=== PATIENT | female | born 1945 | race Caucasian/White ===

== ENCOUNTER 2017-10-18 02:21 | Outpatient (RCR) | payer MEDICARE, SELFPAY | END 2017-11-04 02:21 | LOC: INF 02:21 | PROVIDERS: Visit Provider Internal Medicine Medical Oncology | DX: R69 Illness, unspecified (principal) ==

== ENCOUNTER 2017-11-15 10:17 | Outpatient (RCR) | payer MEDICARE, MEDICAID, SELFPAY ==
[2017-11-15 10:46] LABS: Abs Immature Grans 0.01 k/cumm (0.0-0.09); Absolute Basophil Count 0.03 k/cumm (0.0-0.2); Absolute Eosinophil Count 0.18 k/cumm (0.0-0.7); Absolute Lymphocyte Count 0.76 k/cumm (1.2-3.4); Absolute Monocyte Count 0.45 k/cumm (0.11-0.7); Absolute Neutrophil Count 3.57 k/cumm (1.2-6.7); Basophils % 0.6; Eosinophils % 3.6; HCT 39.1 % (36.0-46.0); HGB 11.7 g/dL (12.0-15.5); Immature Grans % 0.2; Lymphocytes % 15.2; Mean Corp. HGB Concentration 29.9 g/dL (32.0-36.0); Mean Corpuscular Volume 90.1 fL (80-95); Mean Platelet Volume 8.8 fL (8.0-11.0); Neutrophils % 71.4; Platelet Count 177 x1000/uL (130-400); RBC 4.34 m/cumm (4.00-5.20); RBC Distribution Width 16.3 % (11.7-14.6)
[2017-11-15 11:11] LABS: ALT 18 U/L (12-78); AST 20 U/L (15-37); Albumin 2.7 g/dL (3.4-5.0); Alkaline Phosphatase 75 U/L (46-116); Anion Gap 6.3 mmol/L (3-11); BUN 31 mg/dL (7-18); Bilirubin, Total 0.4 mg/dL (0.2-1.0); CO2 33.7 mmol/L (21.0-32.0); CREATININE 1.45 mg/dL (0.55-1.02); Calcium 8.7 mg/dL (8.5-10.1); Chloride 98 mmol/L (98-107); Glucose 138 mg/dL (70-100); Potassium 3.3 mmol/L (3.5-5.1); Sodium 138 mmol/L (136-145)
== END 2017-12-04 23:59 | disposition home or self-care (01) ==
LOC: INF 10:17
PROVIDERS: Visit Provider Internal Medicine Medical Oncology
DX: C50.211 Malignant neoplasm of upper-inner quadrant of right female breast (principal); Z17.0 Estrogen receptor positive status [ER+]; Z45.2 Encounter for adjustment and management of vascular access device
CPT/HCPCS: 36591; 80053; 85025

== ENCOUNTER 2017-12-29 00:57 | Outpatient (RCR) | payer MEDICARE, MEDICAID, SELFPAY ==
[2017-12-29] MEDS: Normal Saline Flush 10 ML SYR IVP (14:55)
[2017-12-29] MEDS: Heparin 500 UNITS/5 ML SYRINGE IV (14:55)
[2017-12-29 15:15] LABS: Abs Immature Grans 0.01 k/cumm (0.0-0.09); Absolute Basophil Count 0.03 k/cumm (0.0-0.2); Absolute Eosinophil Count 0.29 k/cumm (0.0-0.7); Absolute Lymphocyte Count 1.02 k/cumm (1.2-3.4); Absolute Monocyte Count 0.59 k/cumm (0.11-0.7); Absolute Neutrophil Count 3.82 k/cumm (1.2-6.7); Basophils % 0.5; HCT 34.8 % (36.0-46.0); HGB 11.1 g/dL (12.0-15.5); Immature Grans % 0.2; Lymphocytes % 17.7; Mean Corp. HGB Concentration 31.9 g/dL (32.0-36.0); Mean Corpuscular Hemoglobin 28.9 pg (27.0-33.0); Mean Corpuscular Volume 90.6 fL (80-95); Mean Platelet Volume 8.8 fL (8.0-11.0); Monocytes % 10.2; Neutrophils % 66.4; Platelet Count 237 x1000/uL (130-400); RBC 3.84 m/cumm (4.00-5.20); RBC Distribution Width 16.5 % (11.7-14.6); White Blood Cell Count 5.76 k/cumm (4.4-10.8)
[2017-12-29 15:28] LABS: ALT 21 U/L (12-78); AST 20 U/L (15-37); Albumin 3.3 g/dL (3.4-5.0); Alkaline Phosphatase 68 U/L (46-116); Anion Gap 7.1 mmol/L (3-11); BUN 31 mg/dL (7-18); Bilirubin, Total 0.3 mg/dL (0.2-1.0); CO2 28.9 mmol/L (21.0-32.0); CREATININE 1.16 mg/dL (0.55-1.02); Chloride 100 mmol/L (98-107); Estimated GFR 46.05 (mL/min/1.73m2); Glucose 85 mg/dL (70-100); Potassium 4.5 mmol/L (3.5-5.1); Sodium 136 mmol/L (136-145); Total Protein 6.5 g/dL (6.4-8.2)
== END 2018-01-04 23:59 | disposition home or self-care (01) ==
LOC: INF 00:57
PROVIDERS: Visit Provider Internal Medicine Medical Oncology
DX: C50.211 Malignant neoplasm of upper-inner quadrant of right female breast (principal); Z17.0 Estrogen receptor positive status [ER+]; Z45.2 Encounter for adjustment and management of vascular access device
CPT/HCPCS: 36591; 80053; 85025

== ENCOUNTER 2018-03-30 13:45 | Outpatient (RCR) | payer MEDICARE, MEDICAID, SELFPAY | END 2018-04-06 23:59 | disposition home or self-care (01) | LOC: INF 13:45 | PROVIDERS: Visit Provider Internal Medicine Hematology & Oncology | DX: R69 Illness, unspecified (principal) ==

== ENCOUNTER 2019-01-03 10:56 | Outpatient (RCR) | payer MEDICARE, MEDICAID, SELFPAY ==
[2019-01-03 11:20] LABS: Absolute Basophil Count 0.04 k/cumm (0.0-0.2); Absolute Eosinophil Count 0.25 k/cumm (0.0-0.7); Absolute Lymphocyte Count 0.95 k/cumm (1.2-3.4); Absolute Monocyte Count 0.47 k/cumm (0.11-0.7); Absolute Neutrophil Count 3.47 k/cumm (1.2-6.7); Basophils % 0.8; Eosinophils % 4.8; HCT 36.3 % (36.0-46.0); HGB 11.2 g/dL (12.0-15.5); Lymphocytes % 18.3; Mean Corp. HGB Concentration 30.9 g/dL (32.0-36.0); Mean Corpuscular Volume 97.3 fL (80-95); Mean Platelet Volume 9.3 fL (8.0-11.0); Monocytes % 9.1; Platelet Count 219 x1000/uL (130-400); RBC 3.73 m/cumm (4.00-5.20); White Blood Cell Count 5.18 k/cumm (4.4-10.8)
[2019-01-03 11:47] LABS: ALT 20 U/L (14-59); AST 16 U/L (15-37); Albumin 3.3 g/dL (3.4-5.0); Alkaline Phosphatase 69 U/L (46-116); BUN 22 mg/dL (7-18); Bilirubin, Total 0.3 mg/dL (0.2-1.0); CREATININE 1.59 mg/dL (0.55-1.02); Chloride 106 mmol/L (98-107); Estimated GFR 31.91 (mL/min/1.73m2); Glucose 85 mg/dL (70-100); Sodium 141 mmol/L (136-145); Total Protein 6.9 g/dL (6.4-8.2)
== END 2019-01-04 23:59 | disposition home or self-care (01) ==
LOC: INF 10:56
PROVIDERS: Visit Provider Internal Medicine Hematology & Oncology
DX: C50.211 Malignant neoplasm of upper-inner quadrant of right female breast (principal); Z17.0 Estrogen receptor positive status [ER+]
CPT/HCPCS: 36415; 80053; 85025

== ENCOUNTER 2019-04-05 13:40 | Outpatient (RCR) | payer MEDICARE, MEDICAID, SELFPAY ==
[2019-04-05 13:59] LABS: Abs Immature Grans 0.02 k/cumm (0.0-0.09); Absolute Basophil Count 0.04 k/cumm (0.0-0.2); Absolute Eosinophil Count 0.23 k/cumm (0.0-0.7); Absolute Monocyte Count 0.58 k/cumm (0.11-0.7); Absolute Neutrophil Count 4.64 k/cumm (1.2-6.7); Basophils % 0.6; Eosinophils % 3.5; HCT 36.9 % (36.0-46.0); HGB 11.7 g/dL (12.0-15.5); Immature Grans % 0.3 %; Lymphocytes % 16.6; Mean Corp. HGB Concentration 31.7 g/dL (32.0-36.0); Mean Corpuscular Hemoglobin 29.8 pg (27.0-33.0); Mean Corpuscular Volume 94.1 fL (80-95); Monocytes % 8.8; Neutrophils % 70.2; Platelet Count 259 x1000/uL (130-400); RBC 3.92 m/cumm (4.00-5.20); RBC Distribution Width 12.9 % (11.7-14.6); White Blood Cell Count 6.61 k/cumm (4.4-10.8)
[2019-04-05 14:12] LABS: ALT 24 U/L (14-59); AST 24 U/L (15-37); Albumin 3.6 g/dL (3.4-5.0); Alkaline Phosphatase 76 U/L (46-116); BUN 29 mg/dL (7-18); Bilirubin, Total 0.4 mg/dL (0.2-1.0); CREATININE 1.54 mg/dL (0.55-1.02); Chloride 102 mmol/L (98-107); Estimated GFR 33.11 (mL/min/1.73m2); Glucose 71 mg/dL (74-106); Potassium 5.1 mmol/L (3.5-5.1); Sodium 139 mmol/L (136-145); Total Protein 7.4 g/dL (6.4-8.2)
== END 2019-04-06 23:59 | disposition home or self-care (01) ==
LOC: INF 13:40
PROVIDERS: Visit Provider Registered Nurse Oncology
DX: C50.911 Malignant neoplasm of unspecified site of right female breast (principal)
CPT/HCPCS: 36415; 80053; 85025

== ENCOUNTER → 2019-05-02 10:49 | Outpatient (BNVA) | payer MEDICARE, MEDICAID, SELFPAY | PROVIDERS: Referring Provider Neuromusculoskeletal Medicine & OMM; Visit Provider Internal Medicine Cardiovascular Disease | DX: I42.8 Other cardiomyopathies (principal); I50.9 Heart failure, unspecified; Z85.3 Personal history of malignant neoplasm of breast | CPT/HCPCS: 99202 ==

== ENCOUNTER 2019-05-02 11:07 | Outpatient (CLI) | payer MEDICARE, SELFPAY | END 2019-05-02 11:27 | PROVIDERS: Visit Provider Internal Medicine Cardiovascular Disease | DX: I42.9 Cardiomyopathy, unspecified (principal); Z92.21 Personal history of antineoplastic chemotherapy; I42.8 Other cardiomyopathies; I50.9 Heart failure, unspecified; Z85.3 Personal history of malignant neoplasm of breast | CPT/HCPCS: 99202; 93005; 93010 ==

== ENCOUNTER 2019-05-16 07:28 | Outpatient (CLI) | payer MEDICARE, MEDICAID, SELFPAY ==
--- NOTE | 2019-05-16 15:00 | DI.US_ITS ---
APPROVED REPORT EXAM: Comprehensive 2D, Doppler, and color-flow Echocardiogram Patient Location: Out-Patient Mechanical Design Engineer Products: Ghazala Saha RDCS (AE) Indications: Congestive Heart Failure Conclusion Left Ventricle : The left ventricle is normal size. Left ventricular systolic function is mildly decr eased. There is normal left ventricular wall thickness. There is normal LV segmental wall motion. The re is evidence of impaired LV relaxation. LVEF is 45-49%. Right Ventricle : Right ventricle is not well visualized. Atria : The left atrium size is normal. The right atrium size is normal. Aortic Valve : Aortic valve is trileaflet. No aortic regurgitation is present. There is no aortic kellie vular stenosis. Mitral Valve : There is mitral annular calcification. Mild mitral regurgitation. No evidence of ruddy l valve stenosis. Tricuspid Valve : The tricuspid valve is normal in structure. Trace tricuspid regurgitation. There is no tricuspid valve stenosis. Great Vessels : The aortic root is normal in size. The ascending aorta size is mildly dilated. IVC i s normal in size and collapses >50% with inspiration. Estimated RVSP is 19-22 mmHg. There is no prior echocardiogram available for comparison. Wall motion Left Ventricle The left ventricle is normal size. Left ventricular systolic function is mildly decreased. There is n ormal left ventricular wall thickness. There are no regional wall motion abnormalities. There is evid ence of impaired LV relaxation. LVEF is 45-49%. Right Ventricle Right ventricle is not well visualized. Atria The left atrium size is normal. The right atrium size is normal. Aortic Valve Aortic valve is trileaflet. There is no aortic valvular stenosis. No aortic regurgitation is present. Mitral Valve There is mitral annular calcification. No evidence of mitral valve stenosis. Mild mitral regurgitatio n. Tricuspid Valve The tricuspid valve is normal in structure. There is no tricuspid valve stenosis. Trace tricuspid reg urgitation. Pulmonic Valve The pulmonary valve is normal in structure. There is no pulmonic valvular stenosis. Trace pulmonic re gurgitation. Great Vessels The aortic root is normal in size. The ascending aorta size is mildly dilated. IVC is normal in size and collapses >50% with inspiration. Estimated RVSP is 19-22 mmHg. Pericardium There is no pericardial effusion. 2D Dimensions Ao Root d 3.19 cm F: 2.7 - 3.3 LV Vol A2C d MOD 101.9 mL RA Area A4C 11.18 cm2 LV Vol A4C d MOD 104.4 mL RA Vol/ BSA A4C s A-L 14.5 mL/m2 LA vol/ BSA A2C s A-L 29.8 mL/m2 Ao Asc Diam d 3.20 cm F: 2.3 - 3.1 LA vol/ BSA A4C s A-L 24.1 mL/m2 LVEF (Silva's) 47.21 % F: 54 - 74 LA Vol/ BSA Biplane s A-L 28.7 mL/m2 LV Volume 79.82 mL F: 46 - 106 LA Area A4C s MOD 15.52 cm2 LV Volume Index 41.79 mL/m2 F: 29 - 61 LA Area A2C s MOD 18.47 cm2 LV Vol Biplane MOD 104.9 mL LV EF A4C MOD 45.6 % LV EF A2C MOD 48.0 % LV EF Biplane MOD 47.2 % LV Diastology MV E' medial 0.062 (>0.07 m/s) E/A Ratio 0.8 LV E/e MED 9.05 (<14) MV E Vmax 0.56 (0.4-1.3 m/s) MV E' lateral 0.065 (>0.1 m/s) MV A Vmax 0.70 (0.4-1.3 m/s) LV E/e LAT 8.60 (<14) MV E/A Ratio 0.77 MV E/E' medial 9.08 MV E/E' lateral 8.63 Aortic Valve LVOT Area 4.21 cm2 AoV Area Vmax 3.52 cm2 LVOT Vmax 0.96 m/s AoV Area/ BSA (Vmax) 1.84 cm2/m2 LVOT Mean Tomás. 0.59 m/s VALERY Mean Tomás. 3.10 cm2 LVOT Peak Grad 3.7 mmHg VALERY Mean Tomás. Index 1.62 cm2/m2 LVOT Mean Grad 1.7 mmHg LVOT VTI 0.193 m LVOT Diam s 2.30 cm (M/F) 1.5-2.5 AoV Vmax 1.15 (0.5-1.3 m/s) Velocity Ratio 0.83 AoV Mean Tomás. 0.81 m/s AoV Peak Grad 5.3 mmHg LVOT SV 81.34 mL AoV Mean Grad 2.9 (<5 mmHg) AoV VTI 0.225 (0.18-0.25 m) AoV Area VTI 3.62 (2.5-4.5 cm2) AoV Area/ BSA (VTI) 1.89 cm/m2 Mitral Valve MV DT 238 (160-240 msec) MV PHT 69 msec MV Area PHT 3.18 cm2 Pulmonary Valve PV Vmax 0.85 (0.5-1.5 m/s) PV Peak Grad 2.9 mmHg PV Mean Grad 1.4 mmHg PV VTI 0.154 m Tricuspid Valve TR Peak Grad 19.3 mmHg TR Vmax 2.20 m/s RA Pressure 3.00 mmHg RVSP (TR) 22.4 mmHg
== END 2019-05-16 07:48 ==
PROVIDERS: PCP Internal Medicine Cardiovascular Disease; Visit Provider Internal Medicine Cardiovascular Disease
DX: I50.9 Heart failure, unspecified (principal); I42.9 Cardiomyopathy, unspecified; I34.0 Nonrheumatic mitral (valve) insufficiency
CPT/HCPCS: 93306

== ENCOUNTER 2019-08-09 10:32 | Outpatient (CLI) | payer MEDICARE, MEDICAID, SELFPAY ==
[2019-08-09 11:09] LABS: Abs Immature Grans 0.03 k/cumm (0.0-0.09); Absolute Eosinophil Count 0.05 k/cumm (0.0-0.7); Absolute Lymphocyte Count 0.54 k/cumm (1.2-3.4); Absolute Monocyte Count 0.37 k/cumm (0.11-0.7); Absolute Neutrophil Count 5.74 k/cumm (1.2-6.7); Eosinophils % 0.7; HCT 34.1 % (36.0-46.0); HGB 10.4 g/dL (12.0-15.5); Immature Grans % 0.4 %; Mean Corp. HGB Concentration 30.5 g/dL (32.0-36.0); Mean Corpuscular Hemoglobin 30.6 pg (27.0-33.0); Mean Corpuscular Volume 100.3 fL (80-95); Mean Platelet Volume 8.4 fL (8.0-11.0); Monocytes % 5.5; Neutrophils % 85.4; Platelet Count 231 x1000/uL (130-400); RBC Distribution Width 14.7 % (11.7-14.6); White Blood Cell Count 6.73 k/cumm (4.4-10.8)
[2019-08-09 11:22] LABS: ALT 36 U/L (14-59); AST 17 U/L (15-37); Albumin 3.3 g/dL (3.4-5.0); Alkaline Phosphatase 67 U/L (46-116); BUN 22 mg/dL (7-18); Bilirubin, Total 0.4 mg/dL (0.2-1.0); CREATININE 1.06 mg/dL (0.55-1.02); Calcium 9.2 mg/dL (8.5-10.1); Chloride 104 mmol/L (98-107); Estimated GFR 50.81 (mL/min/1.73m2); Glucose 106 mg/dL (74-106); Potassium 3.7 mmol/L (3.5-5.1); Sodium 139 mmol/L (136-145); Total Protein 6.6 g/dL (6.4-8.2)
== END 2019-08-09 10:52 ==
PROVIDERS: PCP Internal Medicine Cardiovascular Disease; Visit Provider Internal Medicine Hematology & Oncology
DX: C50.211 Malignant neoplasm of upper-inner quadrant of right female breast (principal); Z17.0 Estrogen receptor positive status [ER+]
CPT/HCPCS: 36415; 80053; 85025

== ENCOUNTER → 2020-05-12 10:43 | Outpatient (BNVA) | payer MEDICARE, MEDICAID, SELFPAY | PROVIDERS: PCP Neuromusculoskeletal Medicine & OMM; Referring Provider Internal Medicine Cardiovascular Disease; Visit Provider Internal Medicine Cardiovascular Disease | DX: I42.9 Cardiomyopathy, unspecified (principal); J44.9 Chronic obstructive pulmonary disease, unspecified; Z87.891 Personal history of nicotine dependence | CPT/HCPCS: 99214; 99213 ==

== ENCOUNTER → 2020-12-01 12:43 | Outpatient (BNVA) | payer MEDICARE, MEDICAID, SELFPAY | PROVIDERS: PCP Neuromusculoskeletal Medicine & OMM; Referring Provider Neuromusculoskeletal Medicine & OMM; Visit Provider Internal Medicine Cardiovascular Disease | DX: I42.9 Cardiomyopathy, unspecified (principal); J44.9 Chronic obstructive pulmonary disease, unspecified; C50.919 Malignant neoplasm of unspecified site of unspecified female breast | CPT/HCPCS: 99214; 99213 ==

== ENCOUNTER 2020-12-17 03:16 | Outpatient (CLI) | payer MEDICARE, MEDICAID, SELFPAY ==
--- NOTE | 2020-12-17 13:10 | DI.US_ITS ---
APPROVED REPORT EXAM: Comprehensive 2D, Doppler, and color-flow Echocardiogram Patient Location: Out-Patient Portfolio Consultant: Ghazala Saha RDCS (AE) Indications: Cardiomyopathy Other Information Study Quality: Adequate Conclusion Normal left ventricular wall thickness and chamber size. Estimated ejection fraction is 50 to 55%. Th ere is very mild global hypokinesis without segmental wall motion abnormalities Normal right ventricular size and systolic function Both atria are normal in size The aortic valve is trileaflet with trace regurgitation Mildly thickened mitral leaflets, mild mitral regurgitation Normal tricuspid valve with trace regurgitation. Estimated right ventricular systolic pressure is 33 mmHg Mildly dilated ascending aorta measuring 3.49 cm Wall motion Left Ventricle The left ventricle is normal size. Left ventricular systolic function is mildly decreased. There is n ormal left ventricular wall thickness. There is very mild global hypokinesis of the left ventricle. T here is no ventricular septal defect visualized. LVEF is 50-55%. Right Ventricle The right ventricle is normal size. The right ventricular systolic function is normal. The RVSP is 33 .2mmHg. Atria The left atrium size is normal. The right atrium size is normal. The interatrial septum is intact wit h no evidence for an atrial septal defect. Aortic Valve The aortic valve is normal in structure. Aortic valve is trileaflet. There is no aortic valvular sten osis. Trace aortic regurgitation. Mitral Valve Mitral valve leaflets are mildly thickened. No evidence of mitral valve stenosis. Mild mitral regurgi tation. Tricuspid Valve The tricuspid valve is normal in structure. There is no tricuspid valve stenosis. Trace to mild tricu spid regurgitation. Pulmonic Valve The pulmonary valve is normal in structure. There is no pulmonic valvular stenosis. Trace pulmonic re gurgitation. Great Vessels The aortic root is normal in size. The ascending aorta is mildly dilated.3.49 cm Aortic arch is suyapa l in caliber. IVC is normal in size and collapses >50% with inspiration. Pericardium There is no pericardial effusion. 2D Dimensions IVSD d PLAX 1.04 cm F: 0.6-1.0 LV Vol A2C d MOD 99.6 mL LVPW d PLAX 1.06 cm F: 0.6 - 1.0 LV Vol A4C d MOD 123.9 mL LVID d PLAX 5.60 cm F: 3.8 - 5.2 LA vol/ BSA A2C s A-L 22.5 mL/m2 LVDs 4.10 cm F: 2.2 - 3.5 LA vol/ BSA A4C s A-L 24.9 mL/m2 Ao Root d 3.19 cm F: 2.7 - 3.3 LA Vol/ BSA Biplane s A-L 24.5 mL/m2 RA Area A4C 13.27 cm2 LA Area A4C s MOD 17.19 cm2 RA Vol/ BSA A4C s A-L 15.6 mL/m2 LA Area A2C s MOD 15.79 cm2 Ao Asc Diam d 3.49 cm F: 2.3 - 3.1 LV EF A4C MOD 50.0 % LV EF Teichholz 50.2 % LV EF A2C MOD 50.1 % LVEF (Silva's) 49.01 % F: 54 - 74 LV EF Biplane MOD 49.0 % LV Volume 85.36 mL F: 46 - 106 SV 54.73 mL LV Volume Index 45.16 mL/m2 F: 29 - 61 SV Index 28.93 mL/m2 LV Vol Biplane MOD 111.7 mL FS 25.85 % M-Mode TAPSE 2.76 cm (M/F) >1.7 LV Diastology MV E' medial 0.083 (>0.07 m/s) E/A Ratio 0.8 LV E/e MED 7.45 (<14) MV E Vmax 0.62 (0.4-1.3 m/s) MV E' lateral 0.092 (>0.1 m/s) MV A Vmax 0.75 (0.4-1.3 m/s) LV E/e LAT 6.75 (<14) MV E/A Ratio 0.81 MV E/E' medial 7.47 MV E/E' lateral 6.77 Aortic Valve LVOT Area 3.69 cm2 AoV Area Vmax 2.91 cm2 LVOT Vmax 1.00 m/s AoV Area/ BSA (Vmax) 1.54 cm2/m2 LVOT Mean Tomás. 0.64 m/s VALERY Mean Tomás. 2.86 cm2 LVOT Peak Grad 4.0 mmHg VALERY Mean Tomás. Index 1.51 cm2/m2 LVOT Mean Grad 1.9 mmHg LVOT VTI 0.233 m LVOT Diam s 2.15 cm AoV Vmax 1.27 m/s Velocity Ratio 0.78 AoV Mean Tomás. 0.82 m/s AoV Peak Grad 6.4 mmHg LVOT SV 85.92 mL AoV Mean Grad 3.1 mmHg AoV VTI 0.285 m AoV Area VTI 3.02 cm2 AoV Area/ BSA (VTI) 1.59 cm/m2 Mitral Valve MV DT 332 (160-240 msec) MR Vmax 4.47 m/s MV PHT 96 msec MR VTI 1.843 m MV Area PHT 2.28 cm2 MR Peak Grad 80.0 mmHg MV VTI 0.348 m MR Mean Grad 52.7 mmHg MV VTI Annulus 0.370 m MR PISA Radius 0.57 cm MV Area VTI 2.63 (4.0-6.0 cm2) MR EROA 0.16 cm2 MR Aliasing Velocity 0.35 m/s MR PISA 2.06 cm2 Pulmonary Valve PV Vmax 0.97 (0.5-1.5 m/s) RVOT Peak Gr. 2.22 mmHg PV Peak Grad 3.8 mmHg RVOT Mean Gr. 1.10 mmHg PV Mean Grad 2.1 mmHg RVOT VTI 0.169 m PV VTI 0.226 m RVOT Vmax 0.75 m/s Tricuspid Valve TR Peak Grad 30.2 mmHg TR Vmax 2.75 m/s RA Pressure 3.00 mmHg RVSP (TR) 33.2 mmHg
== END 2020-12-17 03:36 ==
PROVIDERS: PCP Neuromusculoskeletal Medicine & OMM; Visit Provider Internal Medicine Cardiovascular Disease
DX: I42.9 Cardiomyopathy, unspecified (principal); I34.0 Nonrheumatic mitral (valve) insufficiency; I77.810 Thoracic aortic ectasia
CPT/HCPCS: 93306

== ENCOUNTER → 2021-06-01 12:51 | Outpatient (BNVA) | payer OTHER, MEDICAID, SELFPAY | PROVIDERS: PCP Neuromusculoskeletal Medicine & OMM; Visit Provider Internal Medicine Cardiovascular Disease | DX: J44.9 Chronic obstructive pulmonary disease, unspecified (principal); I10 Essential (primary) hypertension | CPT/HCPCS: 99213 ==

== ENCOUNTER 2021-10-01 02:48 | Outpatient (RCR) | payer OTHER, MEDICAID, SELFPAY ==
[2021-10-01] MEDS: Normal Saline Flush 10 ML SYR IVP (13:09)
[2021-10-01] MEDS: IRON SUCROSE COMPLEX 300 MG in Normal Saline 250 ML 176.667 MG IVPB (13:10)
== END 2021-10-04 23:59 | disposition home or self-care (01) ==
LOC: INF 02:48
PROVIDERS: PCP Neuromusculoskeletal Medicine & OMM; Visit Provider Family Medicine
DX: N18.32 Chronic kidney disease, stage 3b (principal); D63.1 Anemia in chronic kidney disease; D50.9 Iron deficiency anemia, unspecified
CPT/HCPCS: 96365; J1756

== ENCOUNTER 2021-10-15 01:17 | Outpatient (RCR) | payer OTHER, MEDICAID, SELFPAY ==
[2021-10-08] MEDS: IRON SUCROSE COMPLEX 300 MG in Normal Saline 250 ML 176.667 MG IVPB (13:30)
[2021-10-08] MEDS: Normal Saline Flush 10 ML SYR IVP (13:30)
[2021-10-15] MEDS: Normal Saline Flush 10 ML SYR IVP (13:11)
[2021-10-15] MEDS: IRON SUCROSE COMPLEX 300 MG in Normal Saline 250 ML 176.667 MG IVPB (13:57)
== END 2021-11-04 23:59 | disposition home or self-care (01) ==
LOC: INF 01:17
PROVIDERS: PCP Neuromusculoskeletal Medicine & OMM; Visit Provider Family Medicine
DX: D63.1 Anemia in chronic kidney disease (principal); D50.9 Iron deficiency anemia, unspecified; N18.32 Chronic kidney disease, stage 3b
CPT/HCPCS: 96365; 96366; J1756

== ENCOUNTER 2022-06-01 07:51 | Outpatient (CLI) | payer OTHER, MEDICAID, SELFPAY ==
--- NOTE | 2022-06-01 07:45 | RT.EKG_ITS ---
APPROVED REPORT Exam: Resting ECG Reason for Exam: cmp Patient Location: O HR:74 bpm ECG Measurements Heart Rate 74 AXIS AK 215 P 0 QRSd 107 QRS 9 QT 329 T 157 QTc 365 Conclusion Sinus rhythm...normal P axis, V-rate 50- 99 Borderline prolonged AK interval...AK >212, V-rate 50- [address]-T abnormalities
== END 2022-06-01 07:52 | disposition home or self-care (01) ==
LOC: DI.CARD 07:52
PROVIDERS: PCP Neuromusculoskeletal Medicine & OMM; Visit Provider Internal Medicine Cardiovascular Disease
DX: I42.9 Cardiomyopathy, unspecified (principal); R94.31 Abnormal electrocardiogram [ECG] [EKG]
CPT/HCPCS: 93010

== ENCOUNTER → 2022-06-01 13:32 | Outpatient (BNVA) | payer OTHER, MEDICAID, SELFPAY | PROVIDERS: PCP Neuromusculoskeletal Medicine & OMM; Visit Provider Internal Medicine Cardiovascular Disease | DX: I42.9 Cardiomyopathy, unspecified (principal); J44.9 Chronic obstructive pulmonary disease, unspecified; I10 Essential (primary) hypertension | CPT/HCPCS: 93005; 99213 ==

== ENCOUNTER 2023-01-03 02:58 | Outpatient (RCR) | payer OTHER, SELFPAY ==
[2022-12-27] MEDS: Normal Saline Flush 10 ML SYR IVP (13:04)
[2022-12-27] MEDS: IRON SUCROSE COMPLEX 300 MG in Normal Saline 250 ML 176.667 MG IVPB (13:14)
[2023-01-03] MEDS: Normal Saline Flush 10 ML SYR IVP (13:13)
[2023-01-03] MEDS: IRON SUCROSE COMPLEX 300 MG in Normal Saline 250 ML 176.667 MG IVPB (13:13)
== END 2023-01-04 23:59 | disposition home or self-care (01) ==
LOC: INF 02:58
PROVIDERS: PCP Neuromusculoskeletal Medicine & OMM; Visit Provider Internal Medicine
DX: C50.919 Malignant neoplasm of unspecified site of unspecified female breast (principal)
CPT/HCPCS: 96365; 96366; J1756

== ENCOUNTER 2023-01-10 00:56 | Outpatient (RCR) | payer OTHER, SELFPAY ==
[2023-01-10] MEDS: IRON SUCROSE COMPLEX 300 MG in Normal Saline 250 ML 176.667 MG IVPB (13:13)
[2023-01-10] MEDS: Normal Saline Flush 10 ML SYR IVP (13:27)
== END 2023-02-03 23:59 | disposition home or self-care (01) ==
LOC: INF 00:56
PROVIDERS: PCP Neuromusculoskeletal Medicine & OMM; Visit Provider Internal Medicine
DX: N18.4 Chronic kidney disease, stage 4 (severe) (principal); D63.1 Anemia in chronic kidney disease; D50.9 Iron deficiency anemia, unspecified
CPT/HCPCS: 96365; 96366; J1756

== ENCOUNTER 2023-03-03 08:36 | Outpatient (RCR) | payer OTHER, SELFPAY ==
[2023-03-03 09:37] LABS: Abs Immature Grans 0.07 10^3/uL (0.0-0.06); Absolute Basophil Count 0.02 10^3/uL (0.0-0.2); Absolute Lymphocyte Count 0.65 10^3/uL (1.2-3.4); Absolute Neutrophil Count 11.43 10^3/uL (1.2-6.7); Basophils % 0.2; HCT 34.3 % (36.0-46.0); HGB 10.7 g/dL (11.2-15.7); Immature Grans % 0.6; Lymphocytes % 5.2; MCH 29.9 pg (27.0-33.0); MCHC 31.2 % (32.0-36.0); MCV 96 fL (80-95); Monocytes % 2.2; Neutrophils % 91.8; Platelet Count 250 10^3/uL (130-400); RBC 3.58 10^6/uL (3.93-5.22); RDW 13.8 % (11.7-14.6); RDW-SD 49.1 fL; WBC 12.45 10^3/uL (4.4-10.8)
[2023-03-03 09:38] LABS: Absolute Monocyte Count 0.27 10^3/uL (0.1-0.8)
[2023-03-03 09:53] LABS: ALT 15 U/L (14-59); AST 10 U/L (15-37); Albumin 3.5 g/dL (3.4-5.0); Alkaline Phosphatase 51 U/L (46-116); Anion Gap 11.6 mmol/L (3-11); CO2 23.4 mmol/L (21.0-32.0); CREATININE 3.3 mg/dL (0.55-1.02); Calcium 9.6 mg/dL (8.5-10.1); Chloride 104 mmol/L (98-107); Estimated GFR 13.93 (mL/min/1.73m2); Glucose 126 mg/dL (74-106); Potassium 4.3 mmol/L (3.5-5.1); Sodium 139 mmol/L (136-145); Total Protein 7.4 g/dL (6.4-8.2)
[2023-03-03 10:01] LABS: BUN 90 mg/dL (7-18)
== END 2023-03-06 23:59 | disposition home or self-care (01) ==
LOC: INF 08:36
PROVIDERS: PCP Neuromusculoskeletal Medicine & OMM; Visit Provider Internal Medicine Hematology & Oncology
DX: C50.211 Malignant neoplasm of upper-inner quadrant of right female breast (principal)
CPT/HCPCS: 36415; 80053; 85025

== ENCOUNTER → 2023-05-23 04:45 | Outpatient (CLI) | payer OTHER, SELFPAY ==
--- NOTE | 2023-05-23 13:30 | DI.US_ITS ---
APPROVED REPORT EXAM: Comprehensive 2D, Doppler, and color-flow Echocardiogram Patient Location: Out-Patient Warp Splitter: Ghazala Saha RDCS (AE) Indications: LV function, cardiomyopathy Other Information Study Quality: Adequate Conclusion Normal left ventricular wall thickness and chamber size. EF biplane is 40%. Visually appears 45 to 50% with global hypokinesis Normal right ventricular size and function Both atria are normal in size Trileaflet aortic valve with trace regurgitation Normal mitral valve with mild regurgitation Normal tricuspid valve, trace to mild regurgitation. Estimated right ventricular systolic pressure i s 33 mmHg Wall motion Left Ventricle Left ventricle is mildly dilated. Left ventricular systolic function is mild to moderately decreased . There is normal left ventricular wall thickness. There is global hypokinesis of the left ventricle. There is no ventricular septal defect visualized. LVEF is 40%. Right Ventricle The right ventricle is normal size. Right ventricular systolic function is grossly normal. Atria The left atrium size is normal. The right atrium size is normal. The interatrial septum is intact wit h no evidence for an atrial septal defect. Aortic Valve Aortic valve is trileaflet. There is no aortic valvular stenosis. Trace aortic regurgitation. Mitral Valve The mitral valve is normal in structure. No evidence of mitral valve stenosis. Mild mitral regurgitat ion. Tricuspid Valve The tricuspid valve is normal in structure. There is no tricuspid valve stenosis. Trace to mild tricu spid regurgitation. The RVSP is 33.2 mmHg. Pulmonic Valve The pulmonary valve is normal in structure. There is no pulmonic valvular stenosis. Trace pulmonic re gurgitation. Great Vessels The aortic root is normal in size. The ascending aorta is normal. Aortic arch is not well visualized. IVC is normal in size and collapses >50% with inspiration. Pericardium There is no pericardial effusion. 2D Dimensions IVSD d PLAX 0.89 cm F: 0.6-1.0 Ao Root d 3.22 cm F: 2.7 - 3.3 LVPW d PLAX 0.89 cm F: 0.6 - 1.0 Ao Asc Diam d 3.23 cm F: 2.3 - 3.1 LVID d PLAX 5.46 cm F: 3.8 - 5.2 LVDs 4.38 cm F: 2.2 - 3.5 LV EF Teichholz 40.1 % FS 19.74 % LV EDV (Teich) 144.8 mL LV ESV (Teich) 86.8 mL M-Mode TAPSE 2.46 cm (M/F) >1.7 Auto EF LV EDV A4C 147.8 mL LV EDV A2C 163.3 mL LV EDV BP 155.2 mL LV ESV A4C 88.0 mL LV ESV A2C 97.9 mL LV ESV BP 93.1 mL LVEF(%) A4C 40.4 % LVEF(%) A2C 40.1 % LVEF(%) BP 40.0 % LV SV A4C 59.8 ml LV SV A2C 65.4 ml LV SV BP 62.2 ml LV CO A4C 4.0 L/min LV CO A2C 4.1 L/min LV CO BP 4.1 L/min HR A4C 67.67 BPM HR A2C 63.38 BPM LV EDV Index (BP) LV Strain Long Pk Overal Avg (s) 13.08 LA Volume LA Length A4C 4.8 cm LA Length A2C 4.9 cm LA Area A4C s 16.33 cm2 LA Area A2C s 17.85 cm2 LA Vol A4C A-L 47.35 mL LA Vol A2C A-L 54.73 mL LA Vol Biplane A-L 51.7 mL LA Vol/BSA A4C A-L LA Vol/BSA A2C A-L LA Vol/BSA BP A-L 28.3 mL/m2 LA Vol A4C MOD 43.9 mL LA Vol A2C MOD 50.5 mL LA Vol BP MOD 47.7 mL RA Volume RA Area A4C 14.0 cm2 RA ESV A4C (A-L) 34.3mL RA Vol/BSA A4C A-L RA Length A4C 4.9 cm RA ESV A4C (MOD) 33.7mL LV Diastology MV E' medial 0.087 (>0.07 m/s) MV E Vmax 0.97 (0.4-1.3 m/s) MV E/E' MED 11.12 (<14) MV A Vmax 0.95 (0.4-1.3 m/s) MV E' lateral 0.085 (>0.1 m/s) E/A Ratio 1.0 MV E/E' LAT 11.48 (<14) MV E' Average 0.086 m/s MV E/E'(average) 11.30 Aortic Valve AoV Vmax 1.28 m/s LVOT Vmax 1.07 m/s AoV Peak Grad 27.1 mmHg LVOT Peak Grad 4.6 mmHg AoV Area (Vmax) 2.67 cm2 LVOT VTI 0.244 m AoV VTI 0.313 m LVOT Mean Grad 2.5 mmHg AoV Mean Tomás. 0.94 m/s LVOT SV 78.03 mL AoV Mean Grad 3.9 mmHg LVOT Diam s 2.00 cm AoV Area (VTI) 2.49 cm2 AV Regurg Peak Gr. 47.60 mmHg Velocity Ratio 0.84 AR Decel [place] 1.8m/sec2 AR DT 1893 msec AR PHT 549 msec AR Vmax 3.45 m/s Mitral Valve MV DT 149 (160-240 msec) MV Vmax TIPS 1.15 m/s MV Mean Grad 1.2 (<2mmHg) MV VTI 0.512 m Pulmonary Valve PV Vmax 0.93 (0.5-1.5 m/s) RVOT Vmax 0.66 m/s PV Peak Grad 3.5 mmHg RVOT Peak Gr. 1.7 mmHg PV Mean Tomás 0.68 m/s RVOT VTI 0.154 m PV Mean Grad 2.0 mmHg RVOT Mean Gr. 1.4 mmHg Tricuspid Valve RA Pressure 3.00 mmHg TR Vmax 2.75 m/s TV S' 0.12 m/s TR Peak Grad 30.1 mmHg RVSP (TR) 33.2 mmHg
== END ==
PROVIDERS: PCP Neuromusculoskeletal Medicine & OMM; Visit Provider Internal Medicine Cardiovascular Disease
DX: I42.9 Cardiomyopathy, unspecified (principal)
CPT/HCPCS: 93306

== ENCOUNTER → 2023-05-30 13:43 | Outpatient (BNVA) | payer OTHER, SELFPAY | PROVIDERS: PCP Neuromusculoskeletal Medicine & OMM; Visit Provider Internal Medicine Cardiovascular Disease | DX: I12.9 Hypertensive chronic kidney disease with stage 1 through stage 4 chronic kidney disease, or unspecified chronic kidney disease (principal); N18.4 Chronic kidney disease, stage 4 (severe); I42.9 Cardiomyopathy, unspecified; J44.9 Chronic obstructive pulmonary disease, unspecified | CPT/HCPCS: 99213 ==

== ENCOUNTER 2023-06-02 09:22 | Outpatient (RCR) | payer OTHER, SELFPAY ==
[2023-06-02 09:54] LABS: Abs Immature Grans 0.02 10^3/uL (0.0-0.06); Absolute Basophil Count 0.06 10^3/uL (0.0-0.2); Absolute Eosinophil Count 0.18 10^3/uL (0.0-0.7); Absolute Lymphocyte Count 1.01 10^3/uL (1.2-3.4); Absolute Monocyte Count 0.52 10^3/uL (0.1-0.8); Absolute Neutrophil Count 4.77 10^3/uL (1.2-6.7); Basophils % 0.9; Eosinophils % 2.7; HCT 33.6 % (36.0-46.0); HGB 10.5 g/dL (11.2-15.7); Immature Grans % 0.3; Lymphocytes % 15.4; MCH 31.4 pg (27.0-33.0); MCHC 31.3 % (32.0-36.0); MCV 101 fL (80-95); MPV 9.4 fL (8.0-11.0); Monocytes % 7.9; Neutrophils % 72.8; Platelet Count 209 10^3/uL (130-400); RBC 3.34 10^6/uL (3.93-5.22); RDW 12.6 % (11.7-14.6); RDW-SD 46.7 fL; WBC 6.56 10^3/uL (4.4-10.8)
[2023-06-02 10:10] LABS: ALT 20 U/L (14-59); AST 16 U/L (15-37); Albumin 3.5 g/dL (3.4-5.0); Alkaline Phosphatase 51 U/L (46-116); Anion Gap 7.5 mmol/L (3-11); BUN 47 mg/dL (7-18); Bilirubin, Total 0.7 mg/dL (0.2-1.0); CO2 30.5 mmol/L (21.0-32.0); Calcium 9.3 mg/dL (8.5-10.1); Chloride 106 mmol/L (98-107); Estimated GFR 15.62 (mL/min/1.73m2); Glucose 106 mg/dL (74-106); Potassium 3.9 mmol/L (3.5-5.1); Sodium 144 mmol/L (136-145); Total Protein 6.7 g/dL (6.4-8.2)
== END 2023-06-05 23:59 | disposition home or self-care (01) ==
LOC: INF 09:22
PROVIDERS: PCP Neuromusculoskeletal Medicine & OMM; Visit Provider Internal Medicine Hematology & Oncology
DX: M85.80 Other specified disorders of bone density and structure, unspecified site (principal); Z79.811 Long term (current) use of aromatase inhibitors
CPT/HCPCS: 36415; 80053; 85025

== ENCOUNTER → 2023-11-28 13:10 | Outpatient (BNVA) | payer OTHER, SELFPAY | PROVIDERS: PCP Neuromusculoskeletal Medicine & OMM; Visit Provider Internal Medicine Cardiovascular Disease | DX: I42.9 Cardiomyopathy, unspecified (principal) | CPT/HCPCS: 99213 ==

== ENCOUNTER 2024-01-25 13:55 | Outpatient (RCR) | payer OTHER, SELFPAY ==
[2024-01-25 14:20] LABS: Abs Immature Grans 0.02 10^3/uL (0.0-0.06); Absolute Basophil Count 0.05 10^3/uL (0.0-0.2); Absolute Eosinophil Count 0.21 10^3/uL (0.0-0.7); Absolute Lymphocyte Count 1.38 10^3/uL (1.2-3.4); Absolute Monocyte Count 0.63 10^3/uL (0.1-0.8); Basophils % 0.6 %; Eosinophils % 2.7 %; HCT 37.3 % (36.0-46.0); HGB 11.6 g/dL (11.2-15.7); Immature Grans % 0.3 %; Lymphocytes % 17.5 %; MCH 30.4 pg (27.0-33.0); MCHC 31.1 % (32.0-36.0); MCV 98 fL (80-95); MPV 9.1 fL (8.0-11.0); Neutrophils % 70.9 %; Platelet Count 306 10^3/uL (130-400); RBC 3.82 10^6/uL (3.93-5.22); RDW 13.5 % (11.7-14.6); RDW-SD 49.1 fL; WBC 7.89 10^3/uL (4.4-10.8)
[2024-01-25 14:35] LABS: ALT 19 U/L (14-59); AST 18 U/L (15-37); Albumin 3.5 g/dL (3.4-5.0); Alkaline Phosphatase 62 U/L (46-116); Anion Gap 8.9 mmol/L (3-11); BUN 37 mg/dL (7-18); Bilirubin, Total 0.44 mg/dL (0.2-1.0); CO2 30.1 mmol/L (21.0-32.0); CREATININE 2.5 mg/dL (0.55-1.02); Calcium 10.4 mg/dL (8.5-10.1); Chloride 102 mmol/L (98-107); Estimated GFR 19.32 (mL/min/1.73m2); Glucose 104 mg/dL (74-106); Sodium 141 mmol/L (136-145); Total Protein 7.9 g/dL (6.4-8.2)
== END 2024-02-04 23:59 | disposition home or self-care (01) ==
LOC: INF 13:55
PROVIDERS: Nurse Practitioner Family; PCP Neuromusculoskeletal Medicine & OMM; Visit Provider Internal Medicine Hematology & Oncology
DX: M85.80 Other specified disorders of bone density and structure, unspecified site (principal); Z79.811 Long term (current) use of aromatase inhibitors
CPT/HCPCS: 36415; 80053; 85025

== ENCOUNTER 2024-07-04 01:24 | Outpatient (RCR) | payer MEDICARE, SELFPAY ==
[2024-06-19] MEDS: Normal Saline Flush 5 ML SYR IVP (12:42)
[2024-06-19] MEDS: IRON SUCROSE COMPLEX 300 MG in Normal Saline 250 ML 176.667 MG IVPB (12:45)
[2024-06-26] MEDS: IRON SUCROSE COMPLEX 300 MG in Normal Saline 250 ML 176.667 MG IVPB (13:06)
[2024-06-26] MEDS: Normal Saline Flush 5 ML SYR IVP (13:06)
[2024-07-04] MEDS: Normal Saline Flush 5 ML SYR IVP (12:09)
[2024-07-04] MEDS: IRON SUCROSE COMPLEX 300 MG in Normal Saline 250 ML 176.667 MG IVPB (12:09)
== END 2024-07-04 23:59 | disposition home or self-care (01) ==
LOC: INF 01:24
PROVIDERS: PCP Neuromusculoskeletal Medicine & OMM; Visit Provider Family Medicine
DX: N18.4 Chronic kidney disease, stage 4 (severe) (principal); D63.1 Anemia in chronic kidney disease; D50.9 Iron deficiency anemia, unspecified
CPT/HCPCS: 96365; 96366; J1756

== ENCOUNTER 2024-07-25 02:51 | Outpatient (CLI) | payer MEDICARE, SELFPAY ==
[2024-07-25 13:35] LABS: Abs Immature Grans 0.02 10^3/uL (0.0-0.06); Absolute Basophil Count 0.06 10^3/uL (0.0-0.2); Absolute Eosinophil Count 0.19 10^3/uL (0.0-0.7); Absolute Lymphocyte Count 1.26 10^3/uL (1.2-3.4); Absolute Monocyte Count 0.59 10^3/uL (0.1-0.8); Absolute Neutrophil Count 5.18 10^3/uL (1.2-6.7); Basophils % 0.8 %; Eosinophils % 2.6 %; HCT 39.9 % (36.0-46.0); HGB 12.5 g/dL (11.2-15.7); Immature Grans % 0.3 %; Lymphocytes % 17.3 %; MCH 29.5 pg (27.0-33.0); MCHC 31.3 % (32.0-36.0); MCV 94 fL (80-95); MPV 8.9 fL (8.0-11.0); Monocytes % 8.1 %; Neutrophils % 70.9 %; Platelet Count 302 10^3/uL (130-400); RBC 4.24 10^6/uL (3.93-5.22); RDW-SD 52.2 fL
[2024-07-25 13:55] LABS: ALT 17 U/L (14-59); AST 18 U/L (15-37); Albumin 3.8 g/dL (3.4-5.0); Alkaline Phosphatase 73 U/L (46-116); Anion Gap 4.6 mmol/L (3-11); BUN 40 mg/dL (7-18); Bilirubin, Total 0.6 mg/dL (0.2-1.0); CO2 33.4 mmol/L (21.0-32.0); CREATININE 2.3 mg/dL (0.55-1.02); Calcium 9.9 mg/dL (8.5-10.1); Chloride 98 mmol/L (98-107); Estimated GFR 21.36 (mL/min/1.73m2); Glucose 83 mg/dL (74-106); Potassium 4.1 mmol/L (3.5-5.1); Sodium 136 mmol/L (136-145)
[2024-07-25 14:44] LABS: Albumin 3.8 g/dL (3.4-5.0); PHOSPHORUS 4.4 mg/dL (2.6-4.7)
[2024-07-25 14:54] LABS: COMMENT (LAB VIEW ONLY) 55.99 mg/dL; PROTEIN 15.4 mg/dL; Prot/Crea Ur Ratio 0.27
[2024-07-25 22:27] LABS: Parathyroid Hormone,Intact 70 pg/mL (19-88)
== END 2024-07-25 02:52 | disposition home or self-care (01) ==
LOC: LBO 02:51
PROVIDERS: Registered Nurse Nephrology; PCP Neuromusculoskeletal Medicine & OMM; Visit Provider Nurse Practitioner Family
DX: C50.211 Malignant neoplasm of upper-inner quadrant of right female breast (principal)
CPT/HCPCS: 36415; 80053; 82040; 82565; 83970; 84100; 84156; 85025

== ENCOUNTER 2024-08-01 09:43 | Outpatient (CLI) | payer MEDICARE, SELFPAY ==
--- NOTE | 2024-08-01 09:45 | RT.EKG_ITS ---
APPROVED REPORT Exam: Resting ECG Reason for Exam: baseline Patient Location: O HR:59 bpm ECG Measurements Heart Rate 59 AXIS CA 207 P 46 QRSd 106 QRS 0 QT 409 T 159 QTc 406 Conclusion Sinus rhythm...normal P axis, V-rate 50- 99 Ventricular premature complex...V complex w/ short R-R interval Probable anterior infarct, age indeterminate...Q >35mS, T neg, V2-V5 Lateral leads are also involved...lat Q or ST-T abnormalities
== END 2024-08-01 09:44 | disposition home or self-care (01) ==
LOC: DI.CARD 09:51
PROVIDERS: PCP Neuromusculoskeletal Medicine & OMM; Referring Provider Neuromusculoskeletal Medicine & OMM; Visit Provider Registered Nurse
DX: I50.9 Heart failure, unspecified (principal); I49.3 Ventricular premature depolarization; I21.09 ST elevation (STEMI) myocardial infarction involving other coronary artery of anterior wall
CPT/HCPCS: 93010

== ENCOUNTER → 2024-08-01 09:43 | Outpatient (BNVA) | payer MEDICARE, SELFPAY | PROVIDERS: PCP Neuromusculoskeletal Medicine & OMM; Referring Provider Neuromusculoskeletal Medicine & OMM; Visit Provider Registered Nurse | DX: I42.9 Cardiomyopathy, unspecified (principal); I50.9 Heart failure, unspecified; Z79.899 Other long term (current) drug therapy | CPT/HCPCS: 99214; 93005 ==

== ENCOUNTER 2024-12-04 11:33 | Emergency (ER) | payer MEDICARE, SELFPAY ==
[2024-12-04 11:44] VITALS: BP 174/55; PULSE 60; RESP 18; TEMP 36.6; O2SAT 98
--- NOTE | 2024-12-04 12:15 | DI.CT_ITS ---
Exam(s) CT HEAD CERVICAL SPINE WO EXAM: CT HEAD CERVICAL SPINE WO CLINICAL HISTORY: fall, [place]. TECHNIQUE: Imaging Protocol: Axial computed tomography images with coronal and sagittal reformatted images were created and reviewed COMPARISON: No exams were available for comparison FINDINGS: BRAIN: There are no skull fractures nor fluid in the visualized paranasal sinuses. There is no evidence of intracranial hemorrhage, mass effect, or shift of midline structures. There are no extra-axial fluid collections. The ventricles are not enlarged or shifted and there is no blood within the ventricular system nor within the basal cisterns. There is a small developmental sub lenticular cyst on the right side which measures 7 x 6 mm. CERVICAL SPINE: There is no evidence of acute fracture. There is 6 mm degenerative anterolisthesis of C4 upon C5 related to facet arthropathy. There is no facet joint malalignment. There is chronic advanced disc space narrowing at C5-6 and C6-7 levels. Also bilateral Luschka joint osteophytes at these 2 levels. Facet joints at these 2 levels appear unremarkable. Moderate degenerative changes in the facet joints noted in the upper cervical spine. Bone density normal. No osseous lesions. There is no significant facet joint malalignment. No significant osseous lesions evident. IMPRESSION: No acute intracranial findings on this noninfused CT scan of the brain. No evidence of acute cervical spine fracture, malalignment, nor acute compromise of the cervical spinal canal. Mild degenerative antro listhesis of the C4 upon C5. Report called by myself to ER 12/04/2024 at 2:40 p.m. RADIATION DOSE DELIVERED: 1,236.37mGy.cm Total DLP DATA REPOSITORY: All CT scans at this facility are submitted to the National Radiology Data Registry (NRDR) Dose Index Registry (DIR) with the [employer] (ACR). RADIATION OPTIMIZATION: All CT scans at this facility use at least one of these dose optimization techniques: automated exposure control; mA and/or kV adjustment per patient size (includes targeted exams where dose is matched to clinical indication); or iterative reconstruction.
--- NOTE | 2024-12-04 12:15 | DI.CT_ITS ---
Exam(s) CT CHEST/ABD/PEL WO EXAM: CT CHEST/ABD/PEL WO CLINICAL HISTORY: fall, chest wall injury, right. TECHNIQUE: Imaging Protocol: Axial computed tomography images with coronal and sagittal reformatted images were created and reviewed CONTRAST MATERIAL: Intravenous: none Oral: None COMPARISON: No exams were available for comparison FINDINGS: CHEST: LUNGS: No evidence of lung contusion or pleural effusion or pneumothorax. Solitary tiny granuloma noted in the left lung. Slight benign-appearing thickening of the right major fissure is noted. No focal findings in trachea and mainstem bronchi. No bronchiectasis.. MEDIASTINUM: No evidence of sternal fracture nor mediastinal hematoma. No obvious hilar nor mediastinal adenopathy. CARDIAC: Heart size is normal. There is no pericardial effusion.Caliber of the thoracic aorta is within upper normal limits. OSSEOUS: There is an acute comminuted and displaced fracture of the lateral 3rdthe right clavicle. No obvious fracture of the a chromium and remainder of the scapula. Degenerative changes in the glenohumeral joint and evidence of slightly lateral right side calcific rotator cuff tendinitis. There is a prosthesis in the opposite-left shoulder. There is a mildly displaced fracture of the posterior aspect of the right 3rd rib. There is a nondisplaced fracture of the anterolateral aspect of the right 6th rib. There also is a fracture of the posterior lateral aspect of the right 12th rib. This may be acute fracture on the site of prior fracture. There are no left-sided rib fractures evident. There is a compression fracture of the T6 vertebral body which is probably not acute. There is also Schmorl's node invagination in the superior endplate of T1. ABDOMEN: There is no ascites. No evidence of mesenteric nor bowel wall hematoma. LIVER: Intact. No obvious laceration nor obvious subcapsular hematoma evident on this non few study. No obvious lesions. GALLBLADDER/BILIARY: Mildly distended. The CBD is dilated and there is no abnormal density on the posterior wall of the CBD at the pancreatic head level which measures 10 mm wide by 4 mm. May represent concerning pathology at this level in the lower CBD, including neoplastic. PANCREAS: Finding at the pancreatic head level as described above which is probably in the CBD. No other findings in the remainder of the pancreas. SPLEEN: Intact. Normal size. No lacerations. No lesions. ADRENALS: No significant adrenal findings. KIDNEYS: No obvious renal lacerations nor subcapsular hematomas. No significant renal masses. No calculi. No hydronephrosis. No hydroureter. No obvious findings in the urinary bladder.. ABDOMINAL AORTA: Abdominal aorta is calcified but not significantly enlarged. Common iliac arteries are calcified and upper normal diameters. LYMPH NODES: There is no retroperitoneal nor para-aortic adenopathy. ABDOMINAL WALL/GI: No evidence of significant anterior abdominal wall nor inguinal hernia. No evidence of bowel obstruction. No evidence of bowel wall hematoma. PELVIS: LYMPH NODES: There is no intrapelvic nor inguinal adenopathy. GI: No evidence of appendicitis.Sigmoid diverticulosis without evidence of acute diverticulitis. URINARY BLADDER: No calculi nor obvious masses evident REPRODUCTIVE: Multiple calcified uterine fibroids are noted. No abnormal adnexal masses nor free fluid in the pelvis. OSSEOUS: No significant osseous lesions. No fractures in the pelvis. IMPRESSION: 1. There is a displaced fracture of the lateral 3rd of the right clavicle and there are acute fractures in the right 3rd rib, and right 12th rib. Also very subtle nondisplaced fracture of the right 6 rib. Compression fracture of T6 which is possibly not acute. No evidence of significant lung contusion or pleural effusion and there is no pneumothorax. 2. Incidentally noted is a possible lesion in the posterior wall of the dilated CBD at the level the pancreatic head, this density measuring 10 x 4 mm. May represent sludge, calculus, or possibly neoplasm in the CBD at this pancreatic head level. 3. Other findings as above. Report called by myself to ER physician 12/04/2024 at 3:02 p.m. RADIATION DOSE DELIVERED: 561.62mGy.cm Total DLP DATA REPOSITORY: All CT scans at this facility are submitted to the National Radiology Data Registry (NRDR) Dose Index Registry (DIR) with the [employer] (ACR). RADIATION OPTIMIZATION: All CT scans at this facility use at least one of these dose optimization techniques: automated exposure control; mA and/or kV adjustment per patient size (includes targeted exams where dose is matched to clinical indication); or iterative reconstruction.
[2024-12-04] MEDS: ACETAMINOPHEN 500 MG/50 ML BAG 200 MG IVPB (13:38)
[2024-12-04 13:56] LABS: Abs Immature Grans 0.02 10^3/uL (0.0-0.06); HCT 37.6 % (36.0-46.0); HGB 11.9 g/dL (11.2-15.7); Immature Grans % 0.2 %; MCH 30.4 pg (27.0-33.0); MCHC 31.6 % (32.0-36.0); MCV 96 fL (80-95); MPV 9.3 fL (8.0-11.0); Platelet Count 239 10^3/uL (130-400); RBC 3.92 10^6/uL (3.93-5.22); RDW 13.2 % (11.7-14.6); RDW-SD 46.6 fL; WBC 8.45 10^3/uL (4.4-10.8)
[2024-12-04 14:20] LABS: ALT 22 U/L (14-59); AST 19 U/L (15-37); Albumin 3.5 g/dL (3.4-5.0); Alkaline Phosphatase 81 U/L (46-116); Anion Gap 9.4 mmol/L (3-11); BUN 42 mg/dL (7-18); Bilirubin, Total 0.3 mg/dL (0.2-1.0); CO2 26.6 mmol/L (21.0-32.0); Calcium 10.4 mg/dL (8.5-10.1); Chloride 104 mmol/L (98-107); Estimated GFR 22.39 (mL/min/1.73m2); Glucose 102 mg/dL (74-106); Potassium 4.1 mmol/L (3.5-5.1); Sodium 140 mmol/L (136-145); Total Protein 7.6 g/dL (6.4-8.2)
--- NOTE | 2024-12-04 14:20 | DI.RAD_ITS ---
Exam(s) XR CLAVICLE RT EXAM: XR CLAVICLE RT CLINICAL HISTORY: POSSIBLE FX TECHNIQUE: 2D digital imaging was performed. Two views COMPARISON: CR XR SHOULDER RT COMPLETE 2+V from 12/04/2024 FINDINGS: BONES: There is a fracture of the distal end of the clavicle with full shaft width of displacement. No bony destructive lesion is seen. JOINTS: No dislocation present. Severe degenerative changes glenohumeral joint. SOFT TISSUE: Normal IMPRESSION: Fracture of the distal end of the clavicle DATA REPOSITORY: RADIATION DOSE DELIVERED:
--- NOTE | 2024-12-04 14:34 | DI.RAD_ITS ---
Exam(s) XR SHOULDER RT COMPLETE 2+V EXAM: XR SHOULDER RT COMPLETE 2+V CLINICAL HISTORY: right shoulder injury. TECHNIQUE: 2D digital imaging was performed. COMPARISON: No exams were available for comparison FINDINGS: Five views there is a displaced fracture in the lateral 3rd of the right clavicle with overriding fracture fragments. There is slight offset of the ipsilateral AC joint. There are advanced osteoarthritic degenerative changes in the right shoulder glenohumeral joint with [id number] narrowing and aguiar-type osteophyte in the inferior articular surface of the humeral head. There is also some calcification in the soft tissues immediately adjacent to the greater tuberosity consistent with calcific rotator cuff tendinitis. There does not appear to be an actual fracture of the greater tuberosity itself. The subacromial space is not diminished. There no adjacent rib fractures nor obvious scapular fracture. IMPRESSION: Displaced fracture in the lateral 3rd of the right clavicle. 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 DATA REPOSITORY: RADIATION DOSE DELIVERED:
[2024-12-04 16:00] VITALS: BP 143/88; PULSE 63; RESP 15; TEMP 36.8; O2SAT 97
--- NOTE | 2024-12-04 16:00 | W.ED.GENAD ---
Discharge Plan Disposition Patient Disposition: Against Medical Advice Condition: Serious Discharge Details Clinical Impression: Clavicle fracture, Multiple fractures of ribs, Gallbladder mass Primary Care Provider: Dejuan Clark ED Provider: Lilly Navarro Home Meds and New Rx's Prescriptions: New oxycodone 5 mg capsule 5 mg PO Q8H PRNQty: 10 0RF Continued (DME) Oxygen Tank See Rx Instructions .ROUTE .MEDSUPPLY Qty: 1 Patient Comments: pt uses O2 3 L at night and sometimes during the day. RH 12/01/20 Rx Instructions: As directed carvedilol 12.5 mg tablet 12.5 mg PO BID Patient Comments: 05/30/23 Nephrology at [facility] decreased this last month due to renal fxn. RH Rx Instructions: must administer with a meal/food dextroamphetamine sulfate 20 mg tablet 20 mg PO BID letrozole 2.5 mg tablet 2.5 mg PO DAILY ropinirole 1 mg tablet 1.5 mg PO QHS venlafaxine 75 mg tablet 75 mg PO DAILY albuterol sulfate [Ventolin HFA] 90 mcg/actuation HFA aerosol inhaler 2 puff IH Q6H PRN lidocaine-prilocaine 2.5-2.5 % cream 1 gm TP DAILY PRN triamcinolone acetonide 0.1 % cream 1 applic TP DAILY PRN furosemide 40 mg tablet 20 mg PO DAILY methadone 10 mg/5 mL solution 65 mg PO DAILY Discharge Instructions Instructions: Rib fractures in adults Additional Instructions: Please take Tylenol 3 times daily as needed for pain You may take the oxycodone sparingly, do not operate your vehicle Use a spirometer, 12 times a day full inhalation and exhalation to prevent pneumonia You are leaving against medical recommendation, is very important that you follow-up with your primary care physician and orthopedics regarding your clavicle fracture Keep the sling in place, use caution as this will make you unsteady You may apply ice and Voltaren gel topically You have a mass on your gallbladder, please follow-up with your primary care physician you may need an outpatient MRI for further evaluation Please return immediately should you have chest pain, shortness of breath, or with any new or worsening complaints Referrals: Dejuan Clark [Primary Care Provider, Medicine] Alec Palacios MD [ [facility] STAFF PHYSICIAN, Orthopaedic Surgical] Discharge Data Discharge Date/Time-TO BE ENTERED AT DEPARTURE: 12/04/24 16:12 HPI General Date/Time Provider Initiated Documentation: 12/04/24 12:11. HPI Narrative: This 79-year-old female past medical history of breast cancer COPD chronic kidney disease with recent knee replacement in August presents after trip and fall over a wire. She landed directly on her right shoulder and did hit her head denies quite history of coagulopathy. Did not lose consciousness primarily is complaining of right shoulder and chest pain on the affected side with bruising for which she would like evaluation. Event occurred yesterday afternoon she was hoping the pain would resolve. However she is having trouble moving her shoulder secondary to discomfort which is why she presents. Related Data Home Medications ?Medication ?Instructions ?Recorded ?Confirmed albuterol sulfate 90 mcg/actuation 2 puff inhalation Q6H PRN 04/25/19 12/04/24 aerosol inhaler (Ventolin HFA) dextroamphetamine sulfate 20 mg 20 mg PO BID 04/25/19 12/04/24 tablet letrozole 2.5 mg tablet 2.5 mg PO DAILY 04/25/19 12/04/24 ropinirole 1 mg tablet 1.5 mg PO QHS 04/25/19 12/04/24 venlafaxine 75 mg tablet 75 mg PO DAILY 04/25/19 12/04/24 lidocaine-prilocaine 2.5 %-2.5 % 1 gm topical DAILY PRN 05/02/19 12/04/24 topical cream triamcinolone acetonide 0.1 % 1 applic topical DAILY PRN 05/02/19 12/04/24 topical cream Oxygen #1 ea 12/01/20 12/04/24 furosemide 40 mg tablet 20 mg PO DAILY 06/01/22 12/04/24 methadone 10 mg/5 mL oral solution 65 mg PO DAILY 06/01/22 12/04/24 carvedilol 12.5 mg tablet 12.5 mg PO BID 05/30/23 12/04/24 oxycodone 5 mg capsule 5 mg PO Q8H PRN #10 caps 12/04/24 Previous Rx's ?Medication ?Instructions ?Recorded oxycodone 5 mg capsule 5 mg PO Q8H PRN #10 caps 12/04/24 Allergies Allergy/AdvReac Type Severity Reaction Status Date / Time latex Allergy Skin Rash Verified 12/04/24 11:48 tramadol Allergy Nausea Verified 12/04/24 11:48 General Stated Complaint: Orthopedic SIVAKUMAR: 4 Exam Narrative Exam Narrative: Alert and oriented 79-year-old female GCS 15 pupils equal round reactive to light and accommodation no hemotympanum no visible sign of head or cervical spine trauma, large area of ecchymosis overlying right chest wall and shoulder no evidence of bicep tear, flexion extension is diminished secondary to pain overlying the right shoulder, neurovascularly intact all 4 extremities ambulatory with steady gait tenderness in the right upper quadrant without visible sign of trauma, no crepitus overlying chest wall, no flail chest, no CVA tenderness lungs clear to auscultation although slightly diminished secondary to guarding no tenderness of bilateral hips knees or ankles on assessment Course Vital Signs Vital signs: Vital Signs Temperature 36.6 C 12/04/24 11:44 Pulse 60 12/04/24 11:44 Respiratory Rate 18 12/04/24 11:44 Blood Pressure 174/55 H 12/04/24 11:44 Pulse Oximetry 98 12/04/24 11:44 Temperature 36.6 C 12/04/24 11:44 Pulse 60 12/04/24 11:44 Respiratory Rate 18 12/04/24 11:44 Blood Pressure 174/55 H 12/04/24 11:44 Pulse Oximetry 98 12/04/24 11:44 Pain Level 10 12/04/24 11:44 Lab/Test Results Lab/Test Results: Laboratory Tests Range/Units 12/04/24 13:20 WBC (4.4-10.8) 10^3/uL 8.45 RBC (3.93-5.22) 10^6/uL 3.92 L Hgb (11.2-15.7) g/dL 11.9 Hct (36.0-46.0) % 37.6 MCV (80-95) fL 96 H MCH (27.0-33.0) pg 30.4 MCHC (32.0-36.0) % 31.6 L RDW (11.7-14.6) % 13.2 Plt Count (130-400) 10^3/uL 239 MPV (8.0-11.0) fL 9.3 Immature Gran % % 0.2 Neutrophils % % 77.8 Lymphocytes % % 11.5 Monocytes % % 7.8 Eosinophils % % 2.0 Basophils % % 0.7 Nucleated RBC % (0.0-0.3) % 0.0 Absolute Neutrophils (1.2-6.7) 10^3/uL 6.57 Absolute Lymphocytes (1.2-3.4) 10^3/uL 0.97 L Absolute Monocytes (0.1-0.8) 10^3/uL 0.66 Absolute Eosinophils (0.0-0.7) 10^3/uL 0.17 Absolute Basophils (0.0-0.2) 10^3/uL 0.06 Sodium (136-145) mmol/L 140 Potassium (3.5-5.1) mmol/L 4.1 Chloride (98-107) mmol/L 104 Carbon Dioxide (21.0-32.0) mmol/L 26.6 Anion Gap (3-11) mmol/L 9.4 BUN (7-18) mg/dL 42 H Creatinine (0.55-1.02) mg/dL 2.2 H Est GFR (CKD-EPI 2020) (mL/min/1.73m2) 22.39 Glucose (74-106) mg/dL 102 Calcium (8.5-10.1) mg/dL 10.4 H Total Bilirubin (0.2-1.0) mg/dL 0.3 AST (15-37) U/L 19 ALT (14-59) U/L 22 Alkaline Phosphatase (46-116) U/L 81 Total Protein (6.4-8.2) g/dL 7.6 Albumin (3.4-5.0) g/dL 3.5 ABO/Rh B Positive Antibody Screen NEGATIVE Medical Decision Making Results: Patient with CT scan shows multiple rib fractures possible mass in gallbladder and right clavicle fracture. Diagnostic blood work does not show acute anemia, creatinine is elevated at 2.2 which is baseline for her Assessment and plan: Patient is fully alert and oriented she is in no acute distress she is in discomfort. I did recommend that she be hospitalized for pain control rib fracture secondary to risk of pneumonia. Patient has declined and she is fully alert, oriented, of decisional capacity. She was placed in a sling for a clavicle fracture and a referral was placed to orthopedics. She was given a spirometer and instructed to use this at least 12 times daily and follow-up with primary care physician in 24 to 48 hours for reassessment. Patient was encouraged to take Tylenol. Patient is leaving against medical recommendation secondary to risk of pneumonia and level of pain. There was an incidental note of a T6 compression fracture however patient is not tender in this area and I suspect this is remote. She is given low threshold to return should you have new or worsening complaints and specifically return immediately should she have fever, chills, shortness of breath, or should any new concerns arise. Orthopedic referral placed [facility] All Active Problems (Updated 12/04/24 @ 15:24 by SHANNON Ocasio) Gallbladder mass (Acute) Multiple fractures of ribs (Acute) Clavicle fracture (Acute) Chronic kidney disease (CKD) stage G4/A2, severely decreased glomerular filtration rate (GFR) between 15-29 mL/min/1.73 square meter and albuminuria creatinine ratio between 30-299 mg/g (Acute) Malignant neoplasm of female breast (Acute) Chronic obstructive lung disease (Chronic) Cardiomyopathy (Acute) Medical History Arthritis Enlarged lymph nodes Idiopathic aseptic necrosis of bone Low back pain Joint pain Pulmonary edema Pleural effusion Cardiomegaly CHF (congestive heart failure) Hypertensive disorder Myasthenia gravis Carpal tunnel syndrome Restless leg syndrome Primary central sleep apnea ADHD Depressive disorder Psychoactive substance abuse Mixed hyperlipidemia Tinea corporis Surgical History History of lumpectomy of right breast Family History Father Heart disease Myocardial infarction Social History Smoking/Tobacco Use Status: Former Tobacco Use Quit Date: 03/07/04 Tobacco: How many years used: 40 Smoking risk assessment performed?: Yes Alcohol Intake: never Drug use: Never Substance use type: does not use Housing: house What type of physical activity do you participate in: none and independent ambulation Do you feel safe at home: Yes Do you feel safe in your relationship?: Yes
--- NOTE | 2024-12-05 09:38 | NUR.NOTE ---
Access chart to print the demographic sheet for [facility] billing requisition. Nursing Note:
== END 2024-12-04 16:12 | disposition left against medical advice (07) ==
PROVIDERS: Emergency Provider Physician Assistant; PCP Neuromusculoskeletal Medicine & OMM
DX: K82.8 Other specified diseases of gallbladder (principal); S22.41XA Multiple fractures of ribs, right side, initial encounter for closed fracture; S42.001A Fracture of unspecified part of right clavicle, initial encounter for closed fracture; J44.9 Chronic obstructive pulmonary disease, unspecified; N18.9 Chronic kidney disease, unspecified; W01.0XXA Fall on same level from slipping, tripping and stumbling without subsequent striking against object, initial encounter
CPT/HCPCS: 99285; 99284; 96374; 36415; 71250; 80053; 86850; 86900; 86901; 70450; 72125; 73000; 73030; 74176; 85025; J0131

== ENCOUNTER 2024-12-25 13:32 | Outpatient (CLI) | payer MEDICARE, SELFPAY ==
[2024-12-25 16:04] LABS: Abs Immature Grans 0.02 10^3/uL (0.0-0.06); HCT 33.2 % (36.0-46.0); HGB 10.5 g/dL (11.2-15.7); Immature Grans % 0.4 %; MCH 30.3 pg (27.0-33.0); MCHC 31.6 % (32.0-36.0); MCV 96 fL (80-95); MPV 8.6 fL (8.0-11.0); Platelet Count 242 10^3/uL (130-400); RBC 3.47 10^6/uL (3.93-5.22); RDW 12.7 % (11.7-14.6); RDW-SD 45.3 fL; WBC 5.20 10^3/uL (4.4-10.8)
[2024-12-25 16:39] LABS: Glucose Negative (Negative)
[2024-12-25 17:33] LABS: Albumin 3.4 g/dL (3.4-5.0); Anion Gap 8.1 mmol/L (3-11); BUN 34 mg/dL (7-18); CO2 27.9 mmol/L (21.0-32.0); Calcium 10.2 mg/dL (8.5-10.1); Chloride 101 mmol/L (98-107); Estimated GFR 23.67 (mL/min/1.73m2); Glucose 84 mg/dL (74-106); Magnesium 2.2 mg/dL (1.8-2.4); Potassium 3.9 mmol/L (3.5-5.1); Sodium 137 mmol/L (136-145)
[2024-12-25 17:45] LABS: PROTEIN 15.2 mg/dL; Prot/Crea Ur Ratio 0.37
[2024-12-25 17:46] LABS: Iron 51 ug/dL (50-170); Total Iron Binding Capacity 240 ug/dL (250-450); Transferrin Sat 21 % (15-50)
[2024-12-25 18:05] LABS: Ferritin 588 ng/mL (8-252)
== END 2024-12-25 13:33 | disposition home or self-care (01) ==
PROVIDERS: PCP Neuromusculoskeletal Medicine & OMM; Visit Provider Registered Nurse Nephrology
DX: N18.4 Chronic kidney disease, stage 4 (severe) (principal)
CPT/HCPCS: 36415; 80048; 81003; 82040; 82565; 82728; 83540; 83550; 83735; 83970; 84100; 84156; 85025

== ENCOUNTER 2025-01-23 13:14 | Outpatient (CLI) | payer MEDICARE, SELFPAY ==
[2025-01-23 13:04] LABS: Abs Immature Grans 0.05 10^3/uL (0.0-0.06); HCT 36.1 % (36.0-46.0); HGB 11.4 g/dL (11.2-15.7); Immature Grans % 0.5 %; MCH 30.3 pg (27.0-33.0); MCHC 31.6 % (32.0-36.0); MCV 96 fL (80-95); MPV 8.9 fL (8.0-11.0); Platelet Count 267 10^3/uL (130-400); RBC 3.76 10^6/uL (3.93-5.22); RDW 12.5 % (11.7-14.6); RDW-SD 44.2 fL; WBC 9.59 10^3/uL (4.4-10.8)
[2025-01-23 13:58] LABS: ALT 14 U/L (10-49); AST 20 U/L (<34); Albumin 4.3 g/dL (3.4-5.0); Alkaline Phosphatase 112 U/L (46-116); Anion Gap 8.6 mmol/L (3-11); BUN 45 mg/dL (9-23); Bilirubin, Total 0.30 mg/dL (0.2-1.2); CO2 27.4 mmol/L (20.0-31.0); Calcium 10.6 mg/dL (8.3-10.6); Chloride 103 mmol/L (98-107); Glucose 87 mg/dL (74-106); Potassium 3.8 mmol/L (3.5-5.1); Sodium 139 mmol/L (136-145); Total Protein 7.6 g/dL (5.7-8.2)
== END 2025-01-23 13:15 | disposition home or self-care (01) ==
LOC: LBO 13:15
PROVIDERS: PCP Neuromusculoskeletal Medicine & OMM; Visit Provider Nurse Practitioner Family
DX: Z79.811 Long term (current) use of aromatase inhibitors (principal); C50.211 Malignant neoplasm of upper-inner quadrant of right female breast; Z17.0 Estrogen receptor positive status [ER+]
CPT/HCPCS: 36415; 80053; 85025

== ENCOUNTER → 2025-02-22 00:13 | Outpatient (CLI) | payer MEDICARE, SELFPAY ==
--- NOTE | 2025-02-22 | DI.MRI_ITS ---
Exam(s) MR ABDOMEN WO/W EXAM: MR ABDOMEN WO/W CLINICAL HISTORY: CALCULUS OF BILE DUCT W/O CHOLANGITIS/ TECHNIQUE: Multiplanar multisequence MRI of the Abdomen was performed. CONTRAST MATERIAL: IV Contrast: 14 mL of Dotarem contrast administered. COMPARISON: CT CT CHEST/ABD/PEL WO from 12/04/2024 FINDINGS: Lung bases: Unremarkable. Liver: There is no evidence of a hepatic mass. The liver shows normal signal. Pancreas: Unremarkable. Gallbladder and Bile Ducts: There are stones seen in the common bile duct (series 3001, image 22). There is dilatation of the common bile duct up to 1.5 cm. There is no gallbladder wall thickening or pericholecystic fluid. Adrenals: Unremarkable. Kidneys: There are no suspicious renal masses. There is no evidence of obstructive uropathy. Spleen: Unremarkable. Bowel: The bowel shows no evidence of obstruction or inflammation. There are scattered diverticula seen in the colon but no evidence of acute diverticulitis. Aorta: Unremarkable. Soft Tissues: Unremarkable. Bone: There is a mild right convex lumbar scoliosis. Lymph Nodes: Unremarkable. IMPRESSION: 1. There is choledocholithiasis and dilatation of the common bile duct up to 1.5 cm. There is no gallbladder wall thickening or pericholecystic fluid. 2. Colonic diverticulosis without evidence of acute diverticulitis. DATA REPOSITORY:
[2025-02-22] MEDS: Gadoterate meglumine 20 ML VIAL IVP (12:40)
[2025-02-22] MEDS: Normal Saline - Diluent 50 ML VIAL IJ (12:41)
== END ==
PROVIDERS: PCP Neuromusculoskeletal Medicine & OMM; Visit Provider Neuromusculoskeletal Medicine & OMM
DX: K80.50 Calculus of bile duct without cholangitis or cholecystitis without obstruction (principal); K57.30 Diverticulosis of large intestine without perforation or abscess without bleeding
CPT/HCPCS: 74183